=== PATIENT | female | born 1945 | race African-American/Black ===

== ENCOUNTER 2022-07-12 12:23 | Emergency (ER) | payer MEDICARE ==
[~2022-07-12] VITALS: Ht 167.6 cm; Wt 79.4 kg
[2022-07-12 12:26] VITALS: BP 110/70
--- NOTE | 2022-07-12 12:36 | NUR ---
Note undone in EDM - 07/12/22 at 1236 by [email or web address] BIBA FROM HOME C/O PALPITATION ONSET TODAY ACCOMPANIED BY CHEST PAIN. PER EMS, EKG SHOWED AFIB WITH RATE @ 160, NOW AT 130. DENIES ANY CARDIAC HX BUT STATES SHE POSSIBLY HAD AFIB IN THE PAST. DENIES ANY BLOOD THINNER USE. PMH: LEFT SIDED MASTECTOMY, HYPERTHYROIDISM ALLERGY: AZITHROMYCIN, CODEINE.
--- NOTE | 2022-07-12 12:36 | NUR ---
BIBA FROM HOME C/O PALPITATION ONSET TODAY ACCOMPANIED BY DIZZINESS. DENIES KO. PER EMS, EKG SHOWED AFIB WITH RATE @ 160, NOW AT 130. DENIES ANY CARDIAC HX BUT STATES SHE POSSIBLY HAD AFIB IN THE PAST. DENIES ANY BLOOD THINNER USE. DENIES ANY CHEST PAIN PMH: LEFT SIDED MASTECTOMY, HYPERTHYROIDISM ALLERGY: AZITHROMYCIN, CODEINE.
[2022-07-12] MEDS ORDERED: NACL 0.9% 1,000 ML IV ONE (12:50)
--- NOTE | 2022-07-12 12:58 | NUR ---
IV ESTABLISHED TO RIGHT HAND WITH 20G. EKG DONE AT BEDSIDE, ON HIDE SHAKER.
[2022-07-12 13:27] LABS: BASOPHILS % (AUTO) 0.2 % (0.0-2.0); EOSINOPHILS # (AUTO) 0.1 K/uL (0-0.4); EOSINOPHILS % (AUTO) 1.2 % (0.0-4.0); HEMATOCRIT 40.4 % (36-48); HEMOGLOBIN 13.5 g/dL (12.0-16.0); LYMPHOCYTES # (AUTO) 1.4 K/uL (2.5-16.5); LYMPHOCYTES % (AUTO) 24.1 % (20.5-51.1); MEAN CORPUSCULAR HEMOGLOBIN 30 pg (27-31); MEAN CORPUSCULAR HGB CONC 33 g/dL (33-37); MEAN CORPUSCULAR VOLUME 89.1 fL (80-94); MONOCYTES # (AUTO) 0.6 K/uL (0.8-1.0); MONOCYTES % (AUTO) 9.9 % (1.7-9.3); NEUTROPHILS # (AUTO) 3.9 K/uL (1.8-7.7); NEUTROPHILS % (AUTO) 64.6 % (42.2-75.2); PLATELET COUNT (AUTO) 246 K/uL (140-450); RED BLOOD CELL COUNT(AUTO) 4.53 MIL/uL (4.20-5.40)
[2022-07-12 13:40] LABS: ALBUMIN 3.3 g/dL (3.4-5.0); ASPARTATE AMINOTRANSFERASE 13 U/L (15-37); CARBON DIOXIDE 24.6 mmol/L (21-32); CHLORIDE 102 mmol/L (98-107); CREATININE 0.9 mg/dL (0.6-1.3); GLUCOSE 89 mg/dL (74-106); POTASSIUM 3.6 mmol/L (3.5-5.1); SODIUM SERUM 142 mmol/L (136-145); TOTAL BILIRUBIN 0.5 mg/dL (0.0-1.0); UREA NITROGEN, BLOOD 9 mg/dL (7-18)
--- NOTE | 2022-07-12 14:12 | NUR ---
PT AMBULATED TO RESTROOM WITH WALKER
--- NOTE | 2022-07-12 16:30 | NUR ---
REPEAT EKG DONE
--- NOTE | 2022-07-12 17:07 | NUR ---
REPEAT TROP DRAWN BY WHOLESALE ACCOUNT MANAGER.
--- NOTE | 2022-07-12 18:04 | NUR ---
GERI COLLECTED AND SENT TO LAB
--- NOTE | 2022-07-12 19:14 | NUR ---
IV ESTABLISHED TO RIGHT HAND 20G.
--- NOTE | 2022-07-12 19:22 | NUR ---
GAVE REPORT TO RICHY CRUZ
--- NOTE | 2022-07-12 20:44 | NUR ---
PENDING POSS TX TO [facility] OR [facility].
--- NOTE | 2022-07-12 21:27 | NUR ---
76YR OLD FEMALE WITH C/O DIZZINESS. HX OF AFIB. UPON ARRIVAL PT WAS IN AFIB WITH RVR AT 137 HR. PT DENIES ANY CP OR SOB AT THIS TIME. ON BEDISE CARIDAC MONITOR. POSS TX TO [facility] OR [facility]. PT STATES HAVING PALPATIONS PRIOR TO EMS. PT IS A&OX4. HOB ELEVATED RESP EVEN AND UNLABORED. BED AT LOWEST POSITION. CODEINE AZITHROMYCIN AFIB HYPERTHYROID MASCIOTOMY
--- NOTE | 2022-07-12 22:39 | NUR ---
PT TRANSFER TO [facility]
--- NOTE | 2022-07-12 23:23 | NUR ---
PT RESTING RESP EVEN AND UNLABORED. PT IS PENDING TX TO [facility]
--- NOTE | 2022-07-13 03:08 | NUR ---
REPORT GIVEN TO SUN GURROLA. TRANSFER OF CARE.
--- NOTE | 2022-07-13 03:08 | NUR ---
Patient to be transferred to [facility]. Is being transferred due to HIGHER LEVEL OF CARE. Receiving facility has accepting physician and available space. ER physician has signed transfer form. Patient or responsible constitution party has agreed to transfer and signed form. Patient belongings inventoried and will be sent with patient. Copy of nursing notes, lab reports, EKG, Physicians Orders and X-rays to be sent with patient. Report called to SUN GURROLA at receiving facility. [facility] ambulance service has been called for transfer. ETA is 5AM.
--- NOTE | 2022-07-13 05:00 | NUR ---
SPOKE TO RECEIVING NURSE AT [facility]. STATED THAT DUE TO BP BEING A LOW SHE NEEDED TO CONSULT ANOTHER PHYSICIAN. STATED SHE WOULD CALL BACK, AND TO HOLD ON TRANSPORT.
--- NOTE | 2022-07-13 05:05 | NUR ---
[facility] TRANSPORT AT BEDSIDE
--- NOTE | 2022-07-13 05:10 | NUR ---
PT AMBULATED TO RR WITH WALKER
[2022-07-13 05:30] VITALS: BP 122/56
--- NOTE | 2022-07-13 05:30 | NUR ---
REPORT GIVEN TO [facility] TO RECEIVING FACILITY. TRANSFER OF CARE.
--- NOTE | 2022-07-13 05:40 | NUR ---
PT TAKEN BY [facility] TO [facility]
== END 2022-07-13 05:40 | disposition short-term general hospital (02) ==
LOC: MED 12:23
DX: I48.20 Chronic atrial fibrillation, unspecified (principal); R94.31 Abnormal electrocardiogram [ECG] [EKG]; R42 Dizziness and giddiness; E05.90 Thyrotoxicosis, unspecified without thyrotoxic crisis or storm; Z88.1 Allergy status to other antibiotic agents; Z88.5 Allergy status to narcotic agent
CPT/HCPCS: 36415; 71045; 80053; 83880; 84436; 84443; 84484; 85025; 87426; 93005; 96360; 99285; J7030; Q0092